=== PATIENT | female | born 1995 | race Caucasian/White ===

== ENCOUNTER 2016-10-26 13:09 | Emergency (ER) | payer MEDICAID ==
[~2016-10-26] VITALS: Ht 162.6 cm; Wt 64.4 kg
[2016-10-26 13:32] VITALS: BP 141/103
--- NOTE | 2016-10-26 15:56 | NUR ---
Patient ambulated to bed 8. RN evaluating patient at bedside.
--- NOTE | 2016-10-26 16:15 | NUR ---
Dr. Cagle evaluating patient at bedside.
[2016-10-26] MEDS ORDERED: NACL 0.9% 1,000 ML IV SCH (16:18)
[2016-10-26] MEDS ORDERED: ONDANSETRON 4 MG/2 ML VIAL IVP ONE (16:20)
[2016-10-26] MEDS ORDERED: FAMOTIDINE 20 MG/2 ML VIAL IVP ONE (16:20)
--- NOTE | 2016-10-26 16:30 | NUR ---
PT PRESENTS TO ER FOR EVALUATION OF FLU S/SX; NAUSEA, FEVER, GENERALIZED BODY ACHES, HEADACHE X10 DAYS. HX ASTHMA; DENIES N/V/D; SKIN IS PINK/WARM/DRY; AAOX4 WITH EVEN AND STEADY GAIT; LUNGS CLEAR BL; HR EVEN AND REGULAR; PT DENIES ANY FEVER, CP, SOB, OR COUGH AT THIS TIME; PATIENT STATES PAIN OF 8/10 AT THIS TIME; VSS; PATIENT POSITIONED FOR COMFORT; HOB ELEVATED; BEDRAILS UP X2; BED DOWN. ER MD MADE AWARE OF PT STATUS.
--- NOTE | 2016-10-26 16:45 | NUR ---
AAO, COOPERATIVE PT C/O PAIN 04/17, DR ANDERSON NOTIFIED
[2016-10-26] MEDS ORDERED: HYDROmorphone 1 MG/ML AMP IVP ONE (17:35)
[2016-10-26 18:35] VITALS: BP 118/81
--- NOTE | 2016-10-26 18:35 | NUR ---
Patient discharged with v/s stable. Written and verbal after care instructions given and explained. Patient alert, oriented and verbalized understanding of instructions. Ambulatory with steady gait. All questions addressed prior to discharge. ID band removed. Patient advised to follow up with PMD. Rx of MOTRIN, TYLENOL WITH CODEINE given. Patient educated on indication of medication including possible reaction and side effects. Opportunity to ask questions provided and answered.
== END 2016-10-26 18:35 | disposition home or self-care (01) ==
LOC: MED 13:09
DX: B34.9 Viral infection, unspecified (principal); M79.1 Myalgia; R03.0 Elevated blood-pressure reading, without diagnosis of hypertension; J45.909 Unspecified asthma, uncomplicated; Z90.89 Acquired absence of other organs
CPT/HCPCS: 36415; 80053; 81001; 81025; 82150; 83690; 85025; 87804; 96361; 96374; 96375; 99284; J1170; J2405; J3490; J7030

== ENCOUNTER 2018-08-26 19:30 | Emergency (ER) | payer SELFPAY ==
[~2018-08-26] VITALS: Ht 160 cm; Wt 64.9 kg
[2018-08-26 19:41] VITALS: BP 125/86
--- NOTE | 2018-08-26 19:41 | NUR ---
TO BED # 10 AMBULATORY, REPORT GIVEN TO CARMEN SEGUAR
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
[2018-08-26] MEDS ORDERED: NACL 0.9% 1,000 ML IV ONE (20:30)
--- NOTE | 2018-08-26 21:08 | NUR ---
DR FONTAINE AT BEDSIDE EVALUATING PT .
[2018-08-26] MEDS ORDERED: KETOROLAC 30 MG/ML VIAL IVP ONE (21:40)
[2018-08-26 22:10] VITALS: BP 117/77
--- NOTE | 2018-08-26 22:10 | NUR ---
Patient discharged with v/s stable. Written and verbal after care instructions given and explained. Patient alert, oriented and verbalized understanding of instructions. Ambulatory with steady gait. All questions addressed prior to discharge. ID band removed. Patient advised to follow up with PMD. Rx of Motrin and Benadryl given. Patient educated on indication of medication including possible reaction and side effects. Opportunity to ask questions provided and answered.
== END 2018-08-26 22:10 | disposition home or self-care (01) ==
LOC: MED 19:30
DX: T14.8XXA Other injury of unspecified body region, initial encounter (principal); G47.00 Insomnia, unspecified; J45.909 Unspecified asthma, uncomplicated; V49.60XA Unspecified car occupant injured in collision with unspecified motor vehicles in traffic accident, initial encounter; Y93.89 Activity, other specified; Y92.89 Other specified places as the place of occurrence of the external cause; Y99.8 Other external cause status
CPT/HCPCS: 36415; 81002; 81025; 87804; 96361; 96374; 99283; J1885; J7030

== ENCOUNTER 2021-04-08 18:51 | Emergency (ER) | payer OTHER ==
[~2021-04-08] VITALS: Ht 160 cm; Wt 61.2 kg
[2021-04-08 19:01] VITALS: BP 111/71
[2021-04-08] MEDS ORDERED: KETOROLAC 60 MG/2 ML VIAL IM ONE (19:35)
--- NOTE | 2021-04-08 19:41 | NUR ---
Dr. Son with pt for MSE
--- NOTE | 2021-04-08 19:43 | NUR ---
US at bedside.
[2021-04-08 19:57] VITALS: BP 124/69
--- NOTE | 2021-04-08 22:23 | NUR ---
MOVED TO [facility]
[2021-04-08] MEDS ORDERED: IBUP-2213 PO (22:26)
[2021-04-08] MEDS ORDERED: ACET-8386 PO (22:26)
--- NOTE | 2021-04-08 22:40 | NUR ---
Patient discharged with v/s stable. Written and verbal after care instructions given and explained. Patient alert, oriented and verbalized understanding of instructions. Ambulatory with steady gait. All questions addressed prior to discharge. ID band removed. Patient advised to follow up with PMD. Rx of NORCO AND MOTRIN given. Patient educated on indication of medication including possible reaction and side effects. Opportunity to ask questions provided and answered.
== END 2021-04-08 22:40 | disposition home or self-care (01) ==
LOC: MED 18:51
DX: N83.202 Unspecified ovarian cyst, left side (principal); J45.909 Unspecified asthma, uncomplicated; F12.10 Cannabis abuse, uncomplicated; Z90.49 Acquired absence of other specified parts of digestive tract
CPT/HCPCS: 76830; 81002; 81025; 96372; 99284; J1885